=== PATIENT | male | born 2000 ===

== ENCOUNTER 2023-12-22 08:06 | Emergency (ER) | payer OTHER ==
[~2023-12-22] VITALS: Ht 177.8 cm; Wt 83.9 kg
[2023-12-22 10:36] LABS: Source, Urine Voided
[2023-12-22 10:44] LABS: Appearance, Urine Clear (Clear); Bilirubin, Urine Neg (Neg); Blood, Urine Neg (Neg); Glucose Qualitative, Urine Neg (Neg); Ketones, Urine Neg (Neg); Leukocyte Esterase, Urine Neg (Neg); Nitrite, Urine Neg (Neg); Protein, Urine Neg (Neg); Urobilinogen, Urine NORM (Normal)
[2023-12-22 10:45] LABS: Color, Urine Pale Yellow (P-Yellow)
[2023-12-22] MEDS ORDERED: CefTRIAXone 1000 MG Vial IM ONE (12:10)
[2023-12-22] MEDS ORDERED: DOXY100 PO (12:15)
[2023-12-22] MEDS ORDERED: IBUP800 PO (12:15)
[2023-12-22] MEDS ORDERED: CefTRIAXone 500 MG Vial IM ONE (12:20)
[2023-12-22 12:26] LABS: Chlamydia Trachomatis Urine NOT DETECTED (NOT DETECT); Neisseria Gonorrhoea Urine NOT DETECTED (NOT DETECT)
== END 2023-12-22 12:29 | disposition home or self-care (01) ==
LOC: ER 08:06
PROVIDERS: Emergency Medicine
DX: N45.1 Epididymitis (principal)
CPT/HCPCS: 81003; 87491; 87591; 96372; 99283-25; J0696